=== PATIENT | female | born 1985 | race Caucasian/White ===

== ENCOUNTER 2017-09-21 11:40 | Inpatient (IN) | END 2017-09-25 15:35 | disposition home or self-care (01) | DRG 782 ==

== ENCOUNTER 2017-12-13 10:36 | Inpatient (IN) | END 2017-12-17 09:10 | disposition home or self-care (01) | DRG 832 ==

== ENCOUNTER 2018-01-05 03:02 | Inpatient (IN) | END 2018-01-07 12:40 | disposition home or self-care (01) | DRG 833 ==